=== PATIENT | male | born 2000 | race Caucasian/White ===

== ENCOUNTER → 2021-09-12 13:44 | Outpatient (CLI) | payer OTHER, SELFPAY ==
--- NOTE | ~2021-09-12 | XR_ITS ---
EXAMINATION: XR hip LT min 2V DATE: 09/12/2021 14:08 INDICATION: Left groin pain. Left pelvic crest pain. TECHNIQUE: 2 views of left hip were obtained. COMPARISON: None. FINDINGS: Bone alignment is normal. No fracture. There is decreased femoral head/neck offset, which m ay be seen with femoral acetabular impingement. Left hip joint space is normal. IMPRESSION: 1. No fracture. Reviewed, dictated and finalized at location A. IMPRESSION: 1. No fracture.
== END ==
PROVIDERS: PCP Pediatrics; Visit Provider Pediatrics
DX: M25.552 Pain in left hip (principal)
CPT/HCPCS: 73502